=== PATIENT | female | born 1980 | race African-American/Black ===

== ENCOUNTER 2016-07-24 06:04 | Emergency (ER) | payer OTHER ==
[2016-07-24 06:27] VITALS: BP 121/74
== END 2016-07-24 06:27 | disposition home or self-care (01) ==
LOC: ED 06:04
DX: M54.6 Pain in thoracic spine (principal)

== ENCOUNTER 2018-01-28 05:59 | Emergency (ER) | payer OTHER ==
[~2018-01-28] VITALS: Ht 162.6 cm; Wt 92.1 kg
[2018-01-28 06:05] VITALS: Ht 162.6 cm; Wt 92.1 kg
[2018-01-28 06:52] VITALS: BP 119/76
== END 2018-01-28 06:52 | disposition home or self-care (01) ==
LOC: ED 05:59
DX: S29.012A Strain of muscle and tendon of back wall of thorax, initial encounter (principal); V49.9XXA Car occupant (driver) (passenger) injured in unspecified traffic accident, initial encounter; Y93.I9 Activity, other involving external motion; Y92.89 Other specified places as the place of occurrence of the external cause; Y99.8 Other external cause status

== ENCOUNTER 2018-03-13 07:59 | Emergency (ER) | payer OTHER ==
[~2018-03-13] VITALS: Ht 162.6 cm; Wt 93.0 kg
[2018-03-13 08:05] VITALS: BP 114/65; Ht 162.6 cm; Wt 93.0 kg
== END 2018-03-13 09:19 | disposition home or self-care (01) ==
LOC: ED 07:59
DX: S16.1XXA Strain of muscle, fascia and tendon at neck level, initial encounter (principal); V89.2XXA Person injured in unspecified motor-vehicle accident, traffic, initial encounter; Y93.89 Activity, other specified; Y92.488 Other paved roadways as the place of occurrence of the external cause; Y99.8 Other external cause status
CPT/HCPCS: J1885

== ENCOUNTER 2018-09-06 16:51 | Emergency (ER) | payer OTHER ==
[~2018-09-06] VITALS: Ht 165.1 cm; Wt 95.7 kg
[2018-09-06 16:53] VITALS: Ht 165.1 cm; Wt 95.7 kg
[2018-09-06 17:47] VITALS: BP 117/74
== END 2018-09-06 17:47 | disposition home or self-care (01) ==
LOC: ED 16:51
DX: M54.6 Pain in thoracic spine (principal)

== ENCOUNTER 2019-01-18 14:24 | Emergency (ER) | payer OTHER ==
[~2019-01-18] VITALS: Ht 162.6 cm; Wt 94.8 kg
[2019-01-18 14:30] VITALS: BP 127/81; Ht 162.6 cm; Wt 94.8 kg
== END 2019-01-18 15:46 | disposition home or self-care (01) ==
LOC: ED 14:24
DX: I88.9 Nonspecific lymphadenitis, unspecified (principal); Z98.890 Other specified postprocedural states

== ENCOUNTER 2019-07-10 13:47 | Emergency (ER) | payer OTHER ==
[~2019-07-10] VITALS: Ht 162.6 cm; Wt 94.8 kg
[2019-07-10 14:01] VITALS: Ht 162.6 cm; Wt 94.8 kg
[2019-07-10 16:30] VITALS: BP 126/76
== END 2019-07-10 16:30 | disposition home or self-care (01) ==
LOC: ED 13:47
DX: S33.5XXA Sprain of ligaments of lumbar spine, initial encounter (principal); Z98.890 Other specified postprocedural states; X58.XXXA Exposure to other specified factors, initial encounter; Y93.89 Activity, other specified; Y92.89 Other specified places as the place of occurrence of the external cause; Y99.8 Other external cause status
CPT/HCPCS: Q0092